=== PATIENT | female | born 1955 | race Caucasian/White ===

== ENCOUNTER 2019-11-25 07:51 | Emergency (ER) | payer BC ==
[~2019-11-25] VITALS: Ht 172.7 cm; Wt 90.7 kg
[~2019-11-25 07:51] MED LIST: DULO60CA41 PO; KLO1 PO; TRAZ150T77 PO
[2019-11-25 07:52] VITALS: BP_SYST 99
[2019-11-25] MEDS ORDERED: DIPHENHYDRAMINE HCL 50 MG CAPSULE PO ONE (08:15)
[2019-11-25 09:00] VITALS: BP_SYST 124
== END 2019-11-25 09:00 | disposition home or self-care (01) ==
LOC: SED 07:51
DX: R23.2 Flushing (principal); T45.2X5A Adverse effect of vitamins, initial encounter; J45.909 Unspecified asthma, uncomplicated; Z88.6 Allergy status to analgesic agent; Z88.8 Allergy status to other drugs, medicaments and biological substances; Y92.89 Other specified places as the place of occurrence of the external cause
CPT/HCPCS: 99283; Q0163